=== PATIENT | female | born 1990 | race African-American/Black ===

== ENCOUNTER 2017-09-15 09:33 | Emergency (ER) | payer SELFPAY | END 2017-09-15 10:24 | disposition home or self-care (01) | LOC: ER 09:33 | DX: H10.9 Unspecified conjunctivitis (principal) | CPT/HCPCS: 99283 ==

== ENCOUNTER 2018-08-07 18:45 | Emergency (ER) | payer SELFPAY ==
[~2018-08-07] VITALS: Ht 160 cm; Wt 49.9 kg
[~2018-08-07 18:45] MED LIST: ERYT1OIN6 OP
[2018-08-07] MEDS ORDERED: IV NORMAL SALINE 1000ML BAG 1,000 ML IV ONE (19:30)
[2018-08-07] MEDS ORDERED: DICYCLOMINE 20 MG/2 ML AMPUL. IM ONE (19:30)
[2018-08-07] MEDS ORDERED: ONDANSETRON PF 4 MG/2 ML VIAL. IV ONE (19:30)
[2018-08-07 19:35] LABS: BILIRUBIN,URINE NEGATIVE (NEG); CLARITY,URINE CLEAR; COLOR,URINE YELLOW; NITRITE,URINE NEGATIVE (NEG); PH,URINE 5.5; PROTEIN,URINE NEGATIVE (NEG-TRACE); UROBILINOGEN,URINE 0.2 mg/dL (0.2 mg/dL)
--- NOTE | 2018-08-07 19:37 | PHYS DOC ---
Past Medical History Past Medical History: No Pertinent History (JOON MCGOVERN APRN) Past Surgical History: No Surgical History (JOON MCGOVERN APRN) Alcohol Use: None Drug Use: None (JOON MCGOVERN APRN) Adult General Chief Complaint Chief Complaint: NAUSEA/VOMITING/DIARRHA HPI HPI 27 y/o female presents to ER for c/o abd cramping and N/V/D with sxs starting this morning. She reports she has had several episodes of V/D. She reports her son has GI issues similar to hers. She denies fever, bloody stools, dizziness, CHRISTIANSON, palpitations, or urinary sxs. She reports LMP 2 mo. ago and she has an IUD. (JOON MCGOVERN APRN) Review of Systems Review of Systems Constitutional: Denies fever or chills [] Eyes: Denies change in visual acuity, redness, or eye pain [] HENT: Denies nasal congestion or sore throat [] Respiratory: Denies cough or shortness of breath [] Cardiovascular: No additional information not addressed in HPI [] GI: Denies bloody stools. Reports abd cramping with N/V/D : Denies dysuria or hematuria [] Musculoskeletal: Denies back pain or joint pain [] Integument: Denies rash or skin lesions [] Neurologic: Denies headache, focal weakness or sensory changes. Denies dizziness All other systems were reviewed and found to be within normal limits, except as documented in this note. (JOON MCGOVERN APRN) Current Medications Current Medications Current Medications Medications (Trade) Dose Ordered Sig/Anjali Start Time Stop Time Status Last Admin Dose Admin Dicyclomine HCl (Bentyl) 20 mg 1X ONCE 08/07/18 19:30 08/07/18 19:31 DC 08/07/18 19:36 20 MG Ondansetron HCl (Zofran) 4 mg 1X ONCE 08/07/18 19:30 08/07/18 19:33 DC 08/07/18 19:41 4 MG Sodium Chloride 1,000 ml @ 1,000 mls/hr 1X ONCE 08/07/18 19:30 08/07/18 20:29 DC 08/07/18 19:36 1,000 MLS/HR (MAGI ALONSO MD) Allergies Allergies Allergies Coded Allergies Type Severity Reaction Last Updated Verified No Known Drug Allergies 09/15/17 No (MAGI ALONSO MD) Physical Exam Physical Exam Constitutional: Well developed, well nourished, no acute distress, non-toxic appearance. [] HENT: Normocephalic, atraumatic, oropharynx moist, nose normal. [] Eyes: Pupils equal, no nystagmus, conjunctiva normal, no discharge. [] Neck: Normal range of motion, no tenderness, supple, no stridor. [] Cardiovascular: Heart rate regular rhythm, no murmur [] Lungs & Thorax: Bilateral breath sounds clear to auscultation. Resp. equal/ nonlabored Abdomen: Bowel sounds normal, soft- no distention/rigidity, mild diffuse tenderness in all abd- no rebound tenderness Skin: Warm, dry Back: No tenderness, no CVA tenderness. [] Extremities: No tenderness, no cyanosis, no clubbing, ROM intact, no edema. [] Neurologic: Alert and oriented X 3, normal motor function, normal sensory function, no focal deficits noted. [] Psychologic: Affect normal, judgement normal, mood normal. [] (REFTUNDET,JOON Leonard APRN) Current Patient Data Vital Signs Vital Signs Date Time Temp Pulse Resp B/P (MAP) Pulse Ox O2 Delivery O2 Flow Rate FiO2 08/07/18 20:28 82 18 106/68 (81) 100 Room Air 08/07/18 19:04 98.6 98.6 (MAGI ALONSO MD) Lab Values Laboratory Tests Test 08/07/18 19:11 08/07/18 19:20 08/07/18 19:30 08/07/18 20:03 POC Urine HCG, Qualitative Hcg negative (Negative) Urine Collection Type Unknown Urine Color Yellow Urine Clarity Clear Urine pH 5.5 Urine Specific [place] >=1.030 Urine Protein Negative mg/dL (NEG-TRACE) Urine Glucose (UA) Negative mg/dL (NEG) Urine Ketones (Stick) 40 mg/dL (NEG) Urine Blood Moderate (NEG) Urine Nitrite Negative (NEG) Urine Bilirubin Negative (NEG) Urine Urobilinogen Dipstick 0.2 mg/dL (0.2 mg/dL) Urine Leukocyte Esterase Trace (NEG) Urine RBC Occ /HPF (0-2) Urine WBC 5-10 /HPF (0-4) Urine Squamous Epithelial Cells Many /LPF Urine Bacteria Moderate /HPF (0-FEW) Urine Mucus Marked /LPF White Blood Count 8.5 x10^3/uL (4.0-11.0) Red Blood Count 5.34 x10^6/uL (3.50-5.40) Hemoglobin 15.7 g/dL (12.0-15.5) H Hematocrit 47.8 % (36.0-47.0) H Mean Corpuscular Volume 90 fL (79-100) Mean Corpuscular Hemoglobin 29 pg (25-35) Mean Corpuscular Hemoglobin Concent 33 g/dL (31-37) Red Cell Distribution Width 13.2 % (11.5-14.5) Platelet Count 218 x10^3/uL (140-400) Neutrophils (%) (Auto) 85 % (31-73) H Lymphocytes (%) (Auto) 11 % (24-48) L Monocytes (%) (Auto) 4 % (0-9) Eosinophils (%) (Auto) 1 % (0-3) Basophils (%) (Auto) 0 % (0-3) Neutrophils # (Auto) 7.2 x10^3uL (1.8-7.7) Lymphocytes # (Auto) 0.9 x10^3/uL (1.0-4.8) L Monocytes # (Auto) 0.3 x10^3/uL (0.0-1.1) Eosinophils # (Auto) 0.1 x10^3/uL (0.0-0.7) Basophils # (Auto) 0.0 x10^3/uL (0.0-0.2) Sodium Level 138 mmol/L (136-145) Potassium Level 3.6 mmol/L (3.5-5.1) Chloride Level 103 mmol/L (98-107) Carbon Dioxide Level 22 mmol/L (21-32) Anion Gap 13 (6-14) Blood Urea Nitrogen 15 mg/dL (7-20) Creatinine 0.7 mg/dL (0.6-1.0) Estimated GFR (Cockcroft-Gault) 121.5 BUN/Creatinine Ratio 21 (6-20) H Glucose Level 77 mg/dL (70-99) Calcium Level 9.2 mg/dL (8.5-10.1) Total Bilirubin 0.9 mg/dL (0.2-1.0) Aspartate Amino Transferase (AST) 18 U/L (15-37) Alanine Aminotransferase (ALT) 17 U/L (14-59) Alkaline Phosphatase 54 U/L (46-116) Total Protein 8.9 g/dL (6.4-8.2) H Albumin 4.4 g/dL (3.4-5.0) Albumin/Globulin Ratio 1.0 (1.0-1.7) Lipase 151 U/L (73-393) Laboratory Tests 08/07/18 19:30 Laboratory Tests 08/07/18 20:03 (MAGI ALONSO MD) EKG EKG [] (JOON MCGOVERN APRN) Radiology/Procedures Radiology/Procedures [] (JOON MCGOVERN APRN) Course & Med Decision Making Course & Med Decision Making Pertinent Labs reviewed. (See chart for details) 2034: Patient was evaluated in the ER for complaints of GI issues. Patient had labs and UA done while in the ER- those results were discussed with her WBCs NL at 8.5 no bands H&H elevated and 40 ketones in UA- discussed probable dehydration. LFTs/lipase NL. UA with moderate blood trace leuks/neg. nitrates probable contaminated specimen with many squamous/moderate bacteria. UCG neg. IV fluid bolus was given as well as Zofran and IM Bentyl. On reevaluation patient is smiling and in no visible distress. She's had no active vomiting while in the ER and denies any diarrhea episodes. At this time patient is denying any abdominal pain and states her nausea has subsided. Discussed with improved symptoms plans were for home discharge with Rxs for Zofran ODT and Bentyl and pt to f/u with PCP if sxs persist or with concerns. Discussed probable viral gastritis as her son has had similar GI illness. Education provided on s&s to return to ER for and discharge instructions were discussed. (JOON MCGOVERN APRN) Course & Med Decision Making Staff Physician Addendum: I was working in the ER during the course of this patient's visit. I was available for consultation as needed, but I was not directly involved in the care of this patient. (MAGI ALONSO MD) Dragon Disclaimer Dragon Disclaimer This electronic medical record was generated, in whole or in part, using a voice recognition dictation system. (JOON MCGOVERN APRN) Departure Departure Impression: Primary Impression: Nausea vomiting and diarrhea Additional Impression: Abdominal pain Disposition: HOME, SELF-CARE Condition: STABLE Referrals: NO PCP (PCP) Patient Instructions: Abdominal Pain, Diarrhea, Diarrhea, [id number], Nausea and Vomiting Additional Instructions: Drink plenty of fluids- slowing advancing your diet as tolerated. If symptoms persist follow-up with your primary doctor for re-evaluation and further care. Scripts Dicyclomine Hcl (DICYCLOMINE HCL) 10 Mg Capsule 1 CAP PO PRN Q6HRS PRN for PAIN, #10 CAP 0 Refills Prov: JOON MCGOVERN APRN 08/07/18 Ondansetron (ONDANSETRON ODT) 4 Mg Tab.rapdis 1 TAB PO PRN Q6-8HRS PRN for NAUSEA, #8 TAB 0 Refills Prov: JOON MCGOVERN APRN 08/07/18 Problem Qualifiers JOON MCGOVERN APRN Aug 07, 2018 19:37 MAGI ALONSO MD Aug 08, 2018 01:06
[2018-08-07 19:40] LABS: BASO % 0 % (0-3); EOS # 0.1 x10^3/uL (0.0-0.7); EOS % 1 % (0-3); HEMATOCRIT 47.8 % (36.0-47.0); HEMOGLOBIN 15.7 g/dL (12.0-15.5); LYMPH # 0.9 x10^3/uL (1.0-4.8); LYMPH % 11 % (24-48); MEAN CORPUSCULAR HEMOGLOBIN 29 pg (25-35); MEAN CORPUSCULAR HGB CONC 33 g/dL (31-37); MEAN CORPUSCULAR VOLUME 90 fL (79-100); MONO # 0.3 x10^3/uL (0.0-1.1); MONO % 4 % (0-9); NEUT # 7.2 x10^3uL (1.8-7.7); NEUT % 85 % (31-73); PLATELET COUNT 218 x10^3/uL (140-400); RED BLOOD COUNT 5.34 x10^6/uL (3.50-5.40); RED CELL DISTRIBUTION WIDTH 13.2 % (11.5-14.5); WHITE BLOOD COUNT 8.5 x10^3/uL (4.0-11.0)
[2018-08-07 19:48] LABS: SQUAMOUS EPITHELIAL CELL,UR MANY /LPF
[2018-08-07 19:49] LABS: BACTERIA,URINE MODERATE /HPF (0-FEW); RBC,URINE OCC /HPF (0-2)
[2018-08-07 20:21] LABS: CALCIUM 9.2 mg/dL (8.5-10.1); CREATININE 0.7 mg/dL (0.6-1.0); GFR 121.5; POTASSIUM 3.6 mmol/L (3.5-5.1)
[2018-08-07 20:28] VITALS: BP 106/68
[2018-08-07 20:28] LABS: ALBUMIN 4.4 g/dL (3.4-5.0); TOTAL BILIRUBIN 0.9 mg/dL (0.2-1.0); TOTAL PROTEIN 8.9 g/dL (6.4-8.2)
[2018-08-07] MEDS ORDERED: ONDA4TAB12 PO (20:42)
[2018-08-07] MEDS ORDERED: DICY10CA3 PO (20:42)
== END 2018-08-07 20:53 | disposition home or self-care (01) ==
LOC: ER 18:45
DX: R10.84 Generalized abdominal pain (principal); R11.2 Nausea with vomiting, unspecified; R19.7 Diarrhea, unspecified
CPT/HCPCS: 36415; 80053; 81001; 81025; 83690; 85025; 87086; 96361; 96372; 96374; 99283; J0500; J2405; J7030; 99284